=== PATIENT | male | born 1970 | race Two or more races ===

== ENCOUNTER 2020-08-27 16:54 | Inpatient (IN) | payer OTHER ==
[2020-08-27 21:06] VITALS: BMI 24.4
[2020-08-28] MEDS ORDERED: NICOTINE POLACRILEX 2 MG GUM BUC PRN (06:58)
[2020-08-28] MEDS ORDERED: MAGNESIUM CITRATE 300 ML BOTTLE PO PRN (06:58)
[2020-08-28] MEDS ORDERED: BISMUTH SUBSALICYLATE 524 MG/30 ML UD PO PRN (06:58)
[2020-08-28] MEDS ORDERED: MAG HYDROX/AL HYDROX/SIMETH 30 ML UNIT-DOSE CUP PO PRN (06:58)
[2020-08-28] MEDS ORDERED: MAGNESIUM HYDROX 2400MG/30ML ORAL SUSPENSION 30 ML CUP PO PRN (06:58)
[2020-08-28] MEDS ORDERED: ACETAMINOPHEN 325 MG TABLET (FP) PO PRN ×2 (06:58)
[2020-08-28] MEDS ORDERED: MENTHOL/PHENOL 1 EACH UD MM PRN (06:58)
[2020-08-28] MEDS ORDERED: IBUPROFEN 400 MG TABLET (FP) PO PRN (06:58)
[2020-08-28] MEDS ORDERED: ONDANSETRON *ODT* 4 MG TABLET SL PRN (06:58)
[2020-08-28] MEDS ORDERED: chlordiazePOXIDE HCL 25 MG CAPSULE PO PRN (07:11)
[2020-08-28] MEDS ORDERED: chlordiazePOXIDE HCL 25 MG CAPSULE ONE (07:45)
[2020-08-28] MEDS: PRENATAL VITAMINS W/ FOLIC ACID TABLET (FP) PO SCH (11:03)
[2020-08-28] MEDS: NICOTINE 14 MG/24 HOURS TOPICAL PATCH TD SCH (11:03)
[2020-08-28] MEDS: chlordiazePOXIDE HCL 25 MG CAPSULE PO SCH ×3 (11:03→23:00)
[2020-08-28] MEDS: metFORMIN HCL 500 MG TABLET (FP) PO SCH (18:10)
[2020-08-28] MEDS: THIAMINE HCL 100 MG TABLET (FP) PO SCH (23:00)
[2020-08-28] MEDS: MELATONIN 5 MG TABLETS PO SCH (23:00)
[2020-08-29] MEDS: chlordiazePOXIDE HCL 25 MG CAPSULE PO SCH ×4 (05:56→22:43)
[2020-08-29] MEDS: metFORMIN HCL 500 MG TABLET (FP) PO SCH ×2 (07:31→18:06)
[2020-08-29] MEDS: PRENATAL VITAMINS W/ FOLIC ACID TABLET (FP) PO SCH (10:06)
[2020-08-29] MEDS: NICOTINE 14 MG/24 HOURS TOPICAL PATCH TD SCH (10:06)
[2020-08-29] MEDS: METHOCARBAMOL 500 MG TABLET PO PRN (10:07)
[2020-08-29 12:01] LABS: HEMATOCRIT 42.7 % (35.4-49); HEMOGLOBIN 14.1 GM/dL (11.7-16.9); MCH 28.2 pg (25.7-33.7); MEAN CELL VOLUME 85.4 fl (80-96); MEAN PLT VOLUME 9.4 fl (7.5-11.1); PLATELET COUNT 170 K/MM3 (134-434); RDW 15.4 % (11.9-15.9); WHITE BLOOD COUNT 5.4 K/mm3 (4.0-10.0)
[2020-08-29 12:42] LABS: ALBUMIN 3.5 g/dl (3.4-5.0); CALCIUM 9.5 mg/dL (8.5-10.1)
[2020-08-29 12:45] LABS: CREATININE 0.9 mg/dL (0.55-1.3)
[2020-08-29 12:47] LABS: BILIRUBIN,TOTAL 0.5 mg/dL (0.2-1); TOT PROT 7.4 g/dl (6.4-8.2)
[2020-08-29] MEDS: MELATONIN 5 MG TABLETS PO SCH (22:43)
[2020-08-29] MEDS: THIAMINE HCL 100 MG TABLET (FP) PO SCH (22:43)
[2020-08-30] MEDS: chlordiazePOXIDE HCL 25 MG CAPSULE PO SCH ×4 (06:35→22:43)
[2020-08-30] MEDS: metFORMIN HCL 500 MG TABLET (FP) PO SCH ×2 (06:36→17:33)
[2020-08-30] MEDS: NICOTINE 14 MG/24 HOURS TOPICAL PATCH TD SCH (10:19)
[2020-08-30] MEDS: PRENATAL VITAMINS W/ FOLIC ACID TABLET (FP) PO SCH (10:19)
[2020-08-30] MEDS: MELATONIN 5 MG TABLETS PO SCH (22:44)
[2020-08-30] MEDS: THIAMINE HCL 100 MG TABLET (FP) PO SCH (22:44)
[2020-08-31] MEDS ORDERED: chlordiazePOXIDE HCL 10 MG CAPSULE PO PRN
[2020-08-31] MEDS: metFORMIN HCL 500 MG TABLET (FP) PO SCH ×2 (06:23→17:55)
[2020-08-31] MEDS: chlordiazePOXIDE HCL 10 MG CAPSULE PO SCH ×4 (06:24→22:40)
[2020-08-31] MEDS: PRENATAL VITAMINS W/ FOLIC ACID TABLET (FP) PO SCH (10:26)
[2020-08-31] MEDS: NICOTINE 14 MG/24 HOURS TOPICAL PATCH TD SCH (10:26)
[2020-08-31] MEDS: THIAMINE HCL 100 MG TABLET (FP) PO SCH (22:40)
[2020-08-31] MEDS: MELATONIN 5 MG TABLETS PO SCH (22:40)
[2020-09-01] MEDS: chlordiazePOXIDE HCL 10 MG CAPSULE PO SCH ×2 (05:45→17:55)
[2020-09-01] MEDS: metFORMIN HCL 500 MG TABLET (FP) PO SCH ×2 (07:02→17:50)
[2020-09-01] MEDS: NICOTINE 14 MG/24 HOURS TOPICAL PATCH TD SCH (10:35)
[2020-09-01] MEDS: PRENATAL VITAMINS W/ FOLIC ACID TABLET (FP) PO SCH (10:35)
[2020-09-01] MEDS: METHOCARBAMOL 500 MG TABLET PO PRN (10:36)
[2020-09-01] MEDS: THIAMINE HCL 100 MG TABLET (FP) PO SCH (23:23)
[2020-09-01] MEDS: MELATONIN 5 MG TABLETS PO SCH (23:23)
[2020-09-02] MEDS ORDERED: chlordiazePOXIDE HCL 10 MG CAPSULE PO ONE (05:00)
[2020-09-02] MEDS: metFORMIN HCL 500 MG TABLET (FP) PO SCH (06:35)
[2020-09-02] MEDS: NICOTINE 14 MG/24 HOURS TOPICAL PATCH TD SCH (10:05)
[2020-09-02] MEDS: PRENATAL VITAMINS W/ FOLIC ACID TABLET (FP) PO SCH (10:05)
[2020-09-02 13:00] VITALS: BP 120/81; PULSE 77; TEMP 97.3
== END 2020-09-02 14:33 | disposition other institution (70) | DRG 774 ==
LOC: YASAS 16:54 → Y3N 21:58 → UNDOADMIN 21:58 → Y3N 08-28 09:45
PROVIDERS: ADMIT Allergy & Immunology; ATTEND Allergy & Immunology
PROC: HZ2ZZZZ Detoxification Services for Substance Abuse Treatment (ICD-10-PCS; principal; 2020-08-28)
DX: F10.230 Alcohol dependence with withdrawal, uncomplicated (principal); F14.20 Cocaine dependence, uncomplicated; F17.210 Nicotine dependence, cigarettes, uncomplicated; F41.9 Anxiety disorder, unspecified; F32.9 Major depressive disorder, single episode, unspecified; E11.9 Type 2 diabetes mellitus without complications; Z79.84 Long term (current) use of oral hypoglycemic drugs; M79.605 Pain in left leg; Z91.5 Personal history of self-harm; Z59.0 Homelessness
CPT/HCPCS: 36415; 80053; 82962; 85027; 86780; C9803; U0003

== ENCOUNTER 2020-08-27 23:17 | Emergency (ER) | payer OTHER ==
[2020-08-28 00:36] VITALS: BMI 23.9
[2020-08-28] MEDS ORDERED: ACETAMINOPHEN 325 MG TABLET (FP) PO ONE (00:39)
[2020-08-28] MEDS ORDERED: ACETAMINOPHEN 325 MG TABLET (FP) ONE (01:00)
[2020-08-28] MEDS ORDERED: chlordiazePOXIDE HCL 25 MG CAPSULE PO SCH (05:00)
[2020-08-28 05:12] VITALS: BP 151/76; PULSE 79; TEMP 98.6
[2020-08-28] MEDS ORDERED: BISMUTH SUBSALICYLATE 524 MG/30 ML UD PO PRN (05:53)
[2020-08-28] MEDS ORDERED: MAGNESIUM HYDROX 2400MG/30ML ORAL SUSPENSION 30 ML CUP PO PRN (05:53)
[2020-08-28] MEDS ORDERED: ONDANSETRON *ODT* 4 MG TABLET SL PRN (05:53)
[2020-08-28] MEDS ORDERED: MAG HYDROX/AL HYDROX/SIMETH 30 ML UNIT-DOSE CUP PO PRN (05:53)
[2020-08-28] MEDS ORDERED: NICOTINE POLACRILEX 2 MG GUM BUC PRN (05:53)
[2020-08-28] MEDS ORDERED: IBUPROFEN 400 MG TABLET (FP) PO PRN (05:53)
[2020-08-28] MEDS ORDERED: METHOCARBAMOL 500 MG TABLET PO PRN (05:53)
[2020-08-28] MEDS ORDERED: ACETAMINOPHEN 325 MG TABLET (FP) PO PRN ×2 (05:53)
[2020-08-28] MEDS ORDERED: chlordiazePOXIDE HCL 25 MG CAPSULE PO PRN (05:53)
[2020-08-28] MEDS ORDERED: MENTHOL/PHENOL 1 EACH UD MM PRN (05:53)
[2020-08-28] MEDS ORDERED: MAGNESIUM CITRATE 300 ML BOTTLE PO PRN (05:53)
[2020-08-28] MEDS ORDERED: PRENATAL VITAMINS W/ FOLIC ACID TABLET (FP) PO SCH (10:00)
[2020-08-28] MEDS ORDERED: MELATONIN 5 MG TABLETS PO SCH (22:00)
[2020-08-28] MEDS ORDERED: THIAMINE HCL 100 MG TABLET (FP) PO SCH (22:00)
[2020-08-29] MEDS ORDERED: chlordiazePOXIDE HCL 25 MG CAPSULE PO SCH (05:00)
[2020-08-30] MEDS ORDERED: chlordiazePOXIDE HCL 10 MG CAPSULE PO PRN
[2020-08-30] MEDS ORDERED: chlordiazePOXIDE HCL 10 MG CAPSULE PO SCH (05:00)
[2020-08-31] MEDS ORDERED: chlordiazePOXIDE HCL 10 MG CAPSULE PO SCH (05:00)
[2020-09-01] MEDS ORDERED: chlordiazePOXIDE HCL 10 MG CAPSULE PO ONE (05:00)
== END 2020-08-28 05:40 | disposition home or self-care (01) ==
LOC: JER 23:17
DX: M79.605 Pain in left leg (principal)
CPT/HCPCS: 93971-TC; 99285-25

== ENCOUNTER 2020-09-02 14:33 | Inpatient (IN) | payer OTHER ==
[2020-09-02] MEDS ORDERED: MENTHOL/PHENOL 1 EACH UD MM PRN (15:07)
[2020-09-02] MEDS ORDERED: MAGNESIUM HYDROX 2400MG/30ML ORAL SUSPENSION 30 ML CUP PO PRN (15:07)
[2020-09-02] MEDS ORDERED: NICOTINE POLACRILEX 2 MG GUM BUC PRN (15:07)
[2020-09-02] MEDS ORDERED: MAGNESIUM CITRATE 300 ML BOTTLE PO PRN (15:07)
[2020-09-02] MEDS ORDERED: MAG HYDROX/AL HYDROX/SIMETH 30 ML UNIT-DOSE CUP PO PRN (15:07)
[2020-09-02] MEDS ORDERED: ACETAMINOPHEN 325 MG TABLET (FP) PO PRN (15:07)
[2020-09-02] MEDS ORDERED: guaiFENesin 200 MG/10 ML 10 ML UNIT-DOSE CUPS PO PRN (15:07)
[2020-09-02] MEDS ORDERED: LOPERAMIDE HCL 2 MG CAPSULE PO PRN (15:07)
[2020-09-02] MEDS ORDERED: P-EPHED 60MG/TRIPROLIDI 2.5MG TABLET PO PRN (15:07)
[2020-09-02] MEDS: metFORMIN HCL 500 MG TABLET (FP) PO SCH (17:57)
[2020-09-02] MEDS: MELATONIN 5 MG TABLETS PO SCH (21:36)
[2020-09-02] MEDS: THIAMINE HCL 100 MG TABLET (FP) PO SCH (21:36)
[2020-09-03] MEDS: metFORMIN HCL 500 MG TABLET (FP) PO SCH ×2 (06:39→16:28)
[2020-09-03] MEDS: PRENATAL VITAMINS W/ FOLIC ACID TABLET (FP) PO SCH (09:47)
[2020-09-03] MEDS: MELATONIN 5 MG TABLETS PO SCH (21:17)
[2020-09-03] MEDS: THIAMINE HCL 100 MG TABLET (FP) PO SCH (21:17)
[2020-09-04] MEDS: metFORMIN HCL 500 MG TABLET (FP) PO SCH ×2 (06:42→18:16)
[2020-09-04] MEDS: PRENATAL VITAMINS W/ FOLIC ACID TABLET (FP) PO SCH (09:51)
[2020-09-04] MEDS: THIAMINE HCL 100 MG TABLET (FP) PO SCH (21:14)
[2020-09-04] MEDS: MELATONIN 5 MG TABLETS PO SCH (21:14)
[2020-09-05] MEDS: metFORMIN HCL 500 MG TABLET (FP) PO SCH ×2 (06:31→17:14)
[2020-09-05] MEDS: PRENATAL VITAMINS W/ FOLIC ACID TABLET (FP) PO SCH (09:40)
[2020-09-05] MEDS: MELATONIN 5 MG TABLETS PO SCH (21:22)
[2020-09-05] MEDS: THIAMINE HCL 100 MG TABLET (FP) PO SCH (21:22)
[2020-09-06] MEDS: metFORMIN HCL 500 MG TABLET (FP) PO SCH ×2 (06:43→16:55)
[2020-09-06] MEDS: PRENATAL VITAMINS W/ FOLIC ACID TABLET (FP) PO SCH (09:27)
[2020-09-06] MEDS: THIAMINE HCL 100 MG TABLET (FP) PO SCH (21:07)
[2020-09-06] MEDS: MELATONIN 5 MG TABLETS PO SCH (21:07)
[2020-09-07] MEDS: metFORMIN HCL 500 MG TABLET (FP) PO SCH ×2 (06:27→16:57)
[2020-09-07] MEDS: PRENATAL VITAMINS W/ FOLIC ACID TABLET (FP) PO SCH (09:26)
[2020-09-07] MEDS: MELATONIN 5 MG TABLETS PO SCH (21:18)
[2020-09-07] MEDS: THIAMINE HCL 100 MG TABLET (FP) PO SCH (21:18)
[2020-09-08] MEDS: metFORMIN HCL 500 MG TABLET (FP) PO SCH ×2 (06:24→17:15)
[2020-09-08] MEDS: PRENATAL VITAMINS W/ FOLIC ACID TABLET (FP) PO SCH (09:22)
[2020-09-08] MEDS: MELATONIN 5 MG TABLETS PO SCH (21:13)
[2020-09-08] MEDS: THIAMINE HCL 100 MG TABLET (FP) PO SCH (21:13)
[2020-09-09] MEDS: metFORMIN HCL 500 MG TABLET (FP) PO SCH ×2 (06:39→17:06)
[2020-09-09] MEDS: PRENATAL VITAMINS W/ FOLIC ACID TABLET (FP) PO SCH (09:37)
[2020-09-09] MEDS: THIAMINE HCL 100 MG TABLET (FP) PO SCH (21:06)
[2020-09-09] MEDS: MELATONIN 5 MG TABLETS PO SCH (21:06)
[2020-09-10] MEDS: metFORMIN HCL 500 MG TABLET (FP) PO SCH ×2 (06:30→16:35)
[2020-09-10] MEDS: PRENATAL VITAMINS W/ FOLIC ACID TABLET (FP) PO SCH (09:40)
[2020-09-10] MEDS: MELATONIN 5 MG TABLETS PO SCH (21:12)
[2020-09-10] MEDS: THIAMINE HCL 100 MG TABLET (FP) PO SCH (21:12)
[2020-09-11] MEDS: metFORMIN HCL 500 MG TABLET (FP) PO SCH ×2 (06:35→16:40)
[2020-09-11] MEDS: PRENATAL VITAMINS W/ FOLIC ACID TABLET (FP) PO SCH (09:35)
[2020-09-11] MEDS: MELATONIN 5 MG TABLETS PO SCH (21:13)
[2020-09-11] MEDS: THIAMINE HCL 100 MG TABLET (FP) PO SCH (21:13)
[2020-09-12] MEDS: metFORMIN HCL 500 MG TABLET (FP) PO SCH ×2 (06:29→16:40)
[2020-09-12] MEDS: PRENATAL VITAMINS W/ FOLIC ACID TABLET (FP) PO SCH (09:55)
[2020-09-12] MEDS: THIAMINE HCL 100 MG TABLET (FP) PO SCH (21:12)
[2020-09-12] MEDS: MELATONIN 5 MG TABLETS PO SCH (21:12)
[2020-09-13] MEDS: metFORMIN HCL 500 MG TABLET (FP) PO SCH ×2 (06:37→16:54)
[2020-09-13] MEDS: PRENATAL VITAMINS W/ FOLIC ACID TABLET (FP) PO SCH (09:30)
[2020-09-13] MEDS: MELATONIN 5 MG TABLETS PO SCH (21:14)
[2020-09-13] MEDS: THIAMINE HCL 100 MG TABLET (FP) PO SCH (21:14)
[2020-09-14] MEDS: metFORMIN HCL 500 MG TABLET (FP) PO SCH ×2 (06:39→16:35)
[2020-09-14] MEDS: PRENATAL VITAMINS W/ FOLIC ACID TABLET (FP) PO SCH (09:30)
[2020-09-14] MEDS: THIAMINE HCL 100 MG TABLET (FP) PO SCH (21:09)
[2020-09-14] MEDS: MELATONIN 5 MG TABLETS PO SCH (21:09)
[2020-09-15] MEDS: metFORMIN HCL 500 MG TABLET (FP) PO SCH ×2 (07:09→16:30)
[2020-09-15] MEDS: PRENATAL VITAMINS W/ FOLIC ACID TABLET (FP) PO SCH (09:39)
[2020-09-15] MEDS: MELATONIN 5 MG TABLETS PO SCH (21:13)
[2020-09-15] MEDS: THIAMINE HCL 100 MG TABLET (FP) PO SCH (21:13)
[2020-09-15] MEDS: IBUPROFEN 400 MG TABLET (FP) PO PRN (21:14)
[2020-09-16] MEDS: metFORMIN HCL 500 MG TABLET (FP) PO SCH ×2 (06:35→16:30)
[2020-09-16] MEDS: PRENATAL VITAMINS W/ FOLIC ACID TABLET (FP) PO SCH (09:39)
[2020-09-16] MEDS: MELATONIN 5 MG TABLETS PO SCH (21:11)
[2020-09-16] MEDS: THIAMINE HCL 100 MG TABLET (FP) PO SCH (21:11)
[2020-09-17] MEDS: metFORMIN HCL 500 MG TABLET (FP) PO SCH ×2 (06:21→16:35)
[2020-09-17] MEDS: PRENATAL VITAMINS W/ FOLIC ACID TABLET (FP) PO SCH (09:51)
[2020-09-17] MEDS: MELATONIN 5 MG TABLETS PO SCH (21:06)
[2020-09-17] MEDS: THIAMINE HCL 100 MG TABLET (FP) PO SCH (21:06)
[2020-09-17] MEDS: BACITRACIN 0.9 GM PACKET TP SCH (22:18)
[2020-09-18] MEDS: metFORMIN HCL 500 MG TABLET (FP) PO SCH ×2 (07:01→16:40)
[2020-09-18] MEDS: PRENATAL VITAMINS W/ FOLIC ACID TABLET (FP) PO SCH (09:59)
[2020-09-18] MEDS: BACITRACIN 0.9 GM PACKET TP SCH ×2 (09:59→21:10)
[2020-09-18] MEDS: IBUPROFEN 400 MG TABLET (FP) PO PRN ×2 (10:00→21:09)
[2020-09-18] MEDS: THIAMINE HCL 100 MG TABLET (FP) PO SCH (21:10)
[2020-09-18] MEDS: MELATONIN 5 MG TABLETS PO SCH (21:10)
[2020-09-19] MEDS ORDERED: PT OWN MED DRAWER 7, Y5N ONE ×2 (06:23→18:59)
[2020-09-19] MEDS: metFORMIN HCL 500 MG TABLET (FP) PO SCH ×2 (06:29→16:51)
[2020-09-19] MEDS: BACITRACIN 0.9 GM PACKET TP SCH ×2 (09:41→21:02)
[2020-09-19] MEDS: busPIRone HCL 10 MG TABLET (FP) PO PRN ×2 (09:41→21:02)
[2020-09-19] MEDS: PRENATAL VITAMINS W/ FOLIC ACID TABLET (FP) PO SCH (09:42)
[2020-09-19] MEDS: MELATONIN 5 MG TABLETS PO SCH (21:02)
[2020-09-19] MEDS: THIAMINE HCL 100 MG TABLET (FP) PO SCH (21:02)
[2020-09-20] MEDS: metFORMIN HCL 500 MG TABLET (FP) PO SCH ×2 (06:24→16:25)
[2020-09-20] MEDS: PRENATAL VITAMINS W/ FOLIC ACID TABLET (FP) PO SCH (09:54)
[2020-09-20] MEDS: BACITRACIN 0.9 GM PACKET TP SCH ×2 (09:54→21:15)
[2020-09-20] MEDS: busPIRone HCL 10 MG TABLET (FP) PO PRN ×2 (09:55→21:15)
[2020-09-20] MEDS: MELATONIN 5 MG TABLETS PO SCH (21:13)
[2020-09-20] MEDS: THIAMINE HCL 100 MG TABLET (FP) PO SCH (21:13)
[2020-09-20] MEDS ORDERED: PT OWN MED DRAWER 7, Y5N ONE (21:15)
[2020-09-21] MEDS: metFORMIN HCL 500 MG TABLET (FP) PO SCH ×2 (06:51→16:58)
[2020-09-21] MEDS: PRENATAL VITAMINS W/ FOLIC ACID TABLET (FP) PO SCH (09:39)
[2020-09-21] MEDS: BACITRACIN 0.9 GM PACKET TP SCH ×2 (09:40→21:13)
[2020-09-21] MEDS: busPIRone HCL 10 MG TABLET (FP) PO PRN ×2 (09:40→21:12)
[2020-09-21] MEDS: IBUPROFEN 400 MG TABLET (FP) PO PRN (16:59)
[2020-09-21] MEDS ORDERED: PT OWN MED DRAWER 7, Y5N ONE ×2 (21:04→21:13)
[2020-09-21] MEDS: MELATONIN 5 MG TABLETS PO SCH (21:11)
[2020-09-21] MEDS: THIAMINE HCL 100 MG TABLET (FP) PO SCH (21:11)
[2020-09-22] MEDS: metFORMIN HCL 500 MG TABLET (FP) PO SCH ×2 (06:56→16:20)
[2020-09-22] MEDS: BACITRACIN 0.9 GM PACKET TP SCH ×2 (09:30→21:21)
[2020-09-22] MEDS: PRENATAL VITAMINS W/ FOLIC ACID TABLET (FP) PO SCH (09:30)
[2020-09-22] MEDS: THIAMINE HCL 100 MG TABLET (FP) PO SCH (21:20)
[2020-09-22] MEDS: MELATONIN 5 MG TABLETS PO SCH (21:20)
[2020-09-22] MEDS: busPIRone HCL 10 MG TABLET (FP) PO PRN (21:21)
[2020-09-23] MEDS: metFORMIN HCL 500 MG TABLET (FP) PO SCH (06:23)
[2020-09-23] MEDS: busPIRone HCL 10 MG TABLET (FP) PO PRN (06:23)
[2020-09-23 06:58] VITALS: BP 127/84; PULSE 86; TEMP 98.1
[2020-09-23] MEDS: BACITRACIN 0.9 GM PACKET TP SCH (09:17)
[2020-09-23] MEDS: PRENATAL VITAMINS W/ FOLIC ACID TABLET (FP) PO SCH (09:17)
== END 2020-09-23 09:17 | disposition home or self-care (01) | DRG 772 ==
LOC: YASAS 14:33 → Y3E 14:34
PROVIDERS: ADMIT Allergy & Immunology; ATTEND Allergy & Immunology
PROC: HZ42ZZZ Group Counseling for Substance Abuse Treatment, Cognitive-Behavioral (ICD-10-PCS; principal; 2020-09-02)
DX: F10.20 Alcohol dependence, uncomplicated (principal); F14.20 Cocaine dependence, uncomplicated; F17.210 Nicotine dependence, cigarettes, uncomplicated; F41.9 Anxiety disorder, unspecified; F32.9 Major depressive disorder, single episode, unspecified; E11.9 Type 2 diabetes mellitus without complications; Z79.84 Long term (current) use of oral hypoglycemic drugs; R59.9 Enlarged lymph nodes, unspecified; Z86.59 Personal history of other mental and behavioral disorders; Z56.0 Unemployment, unspecified; Z59.0 Homelessness
CPT/HCPCS: 82962; C9803; U0003